=== PATIENT | male | born 1960 | race Hispanic/Latino ===

== ENCOUNTER 2019-01-01 12:31 | Emergency (ER) | payer BC, OTHER ==
[~2019-01-01] VITALS: Ht 165.1 cm; Wt 72.6 kg
[~2019-01-01 12:31] MED LIST: GLIMEPIRIDE2 MG PO; LEVEMIR100 UNIT/1 SC; LISINOPRIL10 MG PO; METFORMIN HCL500 MG PO; METFORMIN HCL850 MG PO
[2019-01-01] MEDS ORDERED: CLONIDINE HCL 0.1 MG TAB PO ONE (13:15)
[2019-01-01 14:09] LABS: BASOPHILS % 0.5 % (0.0-1.0); EOSINOPHILS # (AUTO) 0.2 (0.0-0.4); EOSINOPHILS % 2.7 % (0.0-6.0); HEMOGLOBIN 13.9 g/dL (14.0-18.0); LYMPHOCYTES # (AUTO) 1.6 (1.0-3.2); LYMPHOCYTES % 18.9 % (18.0-39.1); MEAN CORPUSCULAR HEMOGLOBIN 25.6 pg (28-32); MEAN CORPUSCULAR HGB CONC 33.1 g/dL (31-35); MEAN CORPUSCULAR VOLUME 77.2 fL (81-99); MONOCYTES # (AUTO) 0.6 (0.2-0.8); MONOCYTES % 7.1 % (4.4-11.3); NEUTROPHILS % 70.6 % (38.7-80.0); PLATELET COUNT 254 x10e3/uL (140-360); RED BLOOD COUNT 5.44 x10e6/uL (4.3-5.7); RED CELL DISTRIBUTION WIDTH 13.9 % (11.7-14.4)
[2019-01-01 14:18] LABS: BILIRUBIN,URINE NEGATIVE (NEGATIVE); CLARITY,URINE SL CLOUDY (CLEAR); COLOR,URINE YELLOW (YELLOW); KETONES,URINE NEGATIVE (NEGATIVE); LEUKOCYTE ESTERASE ,URINE NEGATIVE (NEGATIVE); NITRITE,URINE NEGATIVE (NEGATIVE); PROTEIN,URINE DIPSTICK 2+ (NEGATIVE); URINE UROBILINOGEN 0.2 mg/dL (0.2 - 1)
[2019-01-01 14:22] LABS: INR 0.88; PROTHROMBIN TIME 12.4 seconds (11.9-14.5)
[2019-01-01 14:23] LABS: PARTIAL THROMBOPLASTIN TIME 29.5 seconds (23.8-35.5)
[2019-01-01 14:29] LABS: BACTERIA,URINE MODERATE /HPF
[2019-01-01 14:30] LABS: AMORPHOUS SEDIMENT,URINE FEW (FEW)
[2019-01-01 14:30] LABS: ALBUMIN 3.8 g/dL (3.5-5.0); ALBUMIN/GLOBULIN RATIO 0.9 (0.8-2.0); ANION GAP 13.2 mmol/L (8-16); CALCIUM 10.2 mg/dL (8.4-10.2); CREATININE, SERUM 1.4 mg/dL (0.72-1.25); POTASSIUM 4.2 mmol/L (3.5-5.1)
[2019-01-01 14:37] LABS: CREATINE KINASE MB 0.8 ng/mL (0-5.0)
--- NOTE | 2019-01-01 14:56 | Diagnostic Imaging Report ---
EXAMINATION: Head CT HISTORY: Status post fall, loss of consciousness, forehead trauma, pain COMPARISON: None. TECHNIQUE: Multidetector axial images were obtained without contrast from the foramen magnum to the vertex . The images were reconstructed using brain and bone algorithms. Thin section brain images were reformatted into coronal and sagittal planes. Image quality: Motion/streaking artifact limits the evaluation of the skull base and posterior cranial fossa. Dose modulation, iterative reconstruction, and/or weight based adjustment of the mA/kV was utilized to reduce the radiation dose to as low as reasonably achievable. FINDINGS: Parenchyma: 1. No abnormal densities. 2. No mass or hemorrhage. No CT evidence of acute territorial vascular insult. Extra-axial spaces:No abnormal density. No extra-axial fluid collections Brain volume: Normal for age. Ventricles: No hydrocephalus or displacement. Arteries: No density suggestive of thrombus. Dural sinuses: No abnormal density. Extra-axial spaces: No abnormal density. Foramen magnum: No mass, Chiari malformation, or basilar invagination. Sella: No obvious mass. Paranasal/mastoid sinuses: Imaged portions unremarkable. Skull/Scalp: No lytic or blastic lesions. No fractures. IMPRESSION: No intracranial abnormalities, particularly no post traumatic hemorrhage. Signed by: Dr. Nydia Tobar M.D. on 01/01/2019 2:53 PM
--- NOTE | 2019-01-01 15:00 | Diagnostic Imaging Report ---
EXAMINATION: CHEST 2 VIEWS INDICATION: Status post fall. COMPARISON: CTA chest 09/14/2016. FINDINGS: TUBES and LINES: None. LUNGS: Lungs are well inflated. Pulmonary nodules noted on CT chest from 09/14/2016 are not well seen by radiograph. There is no evidence of pneumonia or pulmonary edema. PLEURA: No pleural effusion or pneumothorax. HEART AND MEDIASTINUM: The cardiomediastinal silhouette is unremarkable. BONES AND SOFT TISSUES: No acute osseous lesion. Soft tissues are unremarkable. UPPER ABDOMEN: No free air under the diaphragm. IMPRESSION: No acute radiographic abnormality. Pulmonary nodules noted on CT chest from 09/14/2016 are not well seen by radiograph. A follow-up chest CT (which can be performed in the non-emergent setting) is recommended to assess for stability. Signed by: Dr. Ronald Dee MD on 01/01/2019 2:57 PM
== END 2019-01-01 15:33 | disposition home or self-care (01) ==
LOC: ER 12:31
DX: R53.1 Weakness (principal); E11.9 Type 2 diabetes mellitus without complications; E78.00 Pure hypercholesterolemia, unspecified
CPT/HCPCS: 36415; 70450; 71046; 80053; 81001; 82550; 82553; 84484; 85025; 85610; 85730; 93005; 99284

== ENCOUNTER 2019-05-14 22:57 | Emergency (ER) | payer BC ==
[~2019-05-14] VITALS: Ht 165.1 cm; Wt 72.6 kg
--- OUTSIDE RECORDS SUMMARY | 2019-05-14 22:59 | XMS REPORT ---
[facility] Phone Unavailable Care Team Providers Care Sales Administration Manager Name Role Phone Radha SAAB Unavailable Unavailable Problems This patient has no known problems. Allergies, Adverse Reactions, Alerts This patient has no known allergies or adverse reactions. Medications This patient has no known medications. Results Test Description Test Time Test Comments Text Results Atomic Results Result Comments CHEST 2 VIEWS 2019-01-01 14:55:00 [facility] [address] [address] Patient Name: ALEX WELLER MR #: [id number] : 1960 Age/Sex: 58/M Req #: [id number] Adm Physician: Ordered by: JULIA SALGADO PBX W[employer] CHIEF Report #: [id number] Location: ER Room/Bed: Procedure: [id number] DX/CHEST 2 VIEWS Exam Date: 01/01/19 Exam Time: 1400 REPORT STATUS: Signed EXAMINATION: CHEST 2 VIEWS INDICATION: Status post f all. COMPARISON: CTA chest 09/14/2016. FINDINGS: TUBES and LINES: None. LUNGS: Lungs are well inflated. Pulmonary nodules noted on CT chest from 09/14/2016 are not well seen by radiograph. There is no evidence of pneumonia or pulmonary edema. PLEURA: No pleural effusion or pneumothorax. HEART AND MEDIASTINUM: The cardiomediastinal silhouette is unremarkable. BONES AND SOFT TISSUES: No acute osseous lesion. Soft tissues are unremarkable. UPPER ABDOMEN: No free air under the diaphragm. IMPRESSION: No acute radiographic abnormality. Pulmonary nodules noted on CT chest from 09/14/2016 are not well seen by radiograph. A follow-up chest CT (which can be performed in the non-emergent setting) is recommended to assess for stability. Signed by: Dr. Buffy Uriarte MD on 01/01/2019 2:57 PM Dictated By: BUFFY URIARTE MD [id number] Transcribed By: LAKESHIA on 01/01/19 698 COPY TO: JULIA SALGADO NP CT BRAIN WO 2019-01-01 14:52:[address] [address] Patient Name: ALEX WELLER MR #: [id number] : 1960 Age/Sex: 58/M Req #: [id number] Adm Physician: Ordered by: JULIA SALGADO NP Report #: [id number] Location: ER Room/Bed: Procedure: [id number] CT/CT BRAIN WO Exam Date: 01/01/19 Exam Time: 1400 REPORT STATUS: Signed EXAMINATION: Head CT HISTORY: Status post fall, loss of consciousness, forehead trauma, pain COMPARISON: None. TECHNIQUE: Multidetector axial images were obtained without contrast from the foramen magnum to the vertex . The images were reconstructed using brain and bone algorithms. Thin section brain images were reformatted into coronal and sagittal planes. Image quality: Motion/streaking artifact limits the evaluation of the skull base and posterior cranial fossa. Dose modulation, iterative reconstruction, and/or weight based adjustment of the mA/kV was utilized to reduce the radiation dose to as low as reasonably achievable. FINDINGS: Parenchyma: 1. No abnormal densities. 2. No mass or hemorrhage. No CT evidence of acute territorial vascular insult. Extra-axial spaces:No abnormal density. No extra-axial fluid collections Brain volume: Normal for age. Ventricles: No hydrocephalus or displacement. Arteries: No density suggestive of thrombus. Dural sinuses: No abnormal density. Extra-axial spaces: No abnormal density. Foramen magnum: No mass, Chiari malformation, or basilar invagination. Sella: No obvious mass. Paranasal/mastoid sinuses: Imaged portions unremarkable. Skull/Scalp: No lytic or blastic lesions. No fractures. IMPRESSION: No intracranial abnormalities, particularly no post traumatic hemorrhage. Signed by: Dr. Sharon Tobar M.D. on 01/01/2019 2:53 PM Dictated By: SHARON TOBAR MD 1453 Transcribed By: LAKESHIA on 01/01/19 1453 COPY TO: JULIA SALGADO PBX W[employer] CHIEF XR Foot Complete 3+ Views Left 2018-10-07 17:32:36 Patient: ALEX WELLER Date/Time10/07/2018 15:32 CSTReason for ExamE11.621ReportLEFT FOOT SERIES, 3 VIEWSLocation Code: [id number]: E11.621COMMENTS:An acute fracture is not identified in the foot. A moderate hallux valgus deformity is seen with associated marked soft tissue swelling. There is lateral subluxation of the first metatarsophalangeal joint. Associated subchondral sclerosis and cyst formation are also present. The hallux sesamoid bones are laterally subluxed. Small posterior and plantar calcaneal bone spurs are noted.IMPRESSION:Moderate hallux valgus.Marked soft tissue swelling at the first metatarsophalangeal joint. Final Dictated by: MD Evans Adam FDictated DT/TM: 10/07/2018 5:24 pmSigned by: MD Evans Adam FSigned (Electronic Signature): 10/07/2018 5:32 pm XR Foot Complete 3+ Views Left 2018-08-28 11:24:19 Patient: ALEX WELLER Date/Time08/28/2018 10:25 CDTReason for ExampainReportXR Foot Complete 3+ Views LeftCLINICAL INFORMATION: painCOMPARISONS: None available.FINDINGS:No acute fracture is identified. A moderate hallux valgus deformity of 30 degrees is seen. There is lateral subluxation of the hallux sesamoids. Soft tissue swelling surrounds the first metatarsophalangeal joint. Small posterior and plantar calcaneal bone spurs are present.IMPRESSION:1. Moderate hallux valgus with associated soft tissue swelling at the first metatarsophalangeal joint.2. No acute fracture or bony erosion is identified.Location: R16 Final Dictated by: MD Evans Adam FDictated DT/TM: 08/28/2018 11:21 amSigned by: MD Evans Adam FSigned (Electronic Signature): 08/28/2018 11:24 am
[2019-05-14 23:36] LABS: BASOPHILS % 0.1 % (0.0-1.0); EOSINOPHILS % 0.1 % (0.0-6.0); HEMATOCRIT 32.6 % (38.2-49.6); HEMOGLOBIN 10.9 g/dL (14.0-18.0); LYMPHOCYTES # (AUTO) 1.2 (1.0-3.2); LYMPHOCYTES % 8.5 % (18.0-39.1); MEAN CORPUSCULAR HEMOGLOBIN 26.3 pg (28-32); MEAN CORPUSCULAR HGB CONC 33.4 g/dL (31-35); MEAN CORPUSCULAR VOLUME 78.6 fL (81-99); MONOCYTES # (AUTO) 0.9 (0.2-0.8); MONOCYTES % 6.2 % (4.4-11.3); NEUTROPHILS % 84.5 % (38.7-80.0); PLATELET COUNT 237 x10e3/uL (140-360); RED BLOOD COUNT 4.15 x10e6/uL (4.3-5.7); RED CELL DISTRIBUTION WIDTH 13.1 % (11.7-14.4)
[2019-05-15 00:02] LABS: ALBUMIN/GLOBULIN RATIO 0.6 (0.8-2.0); ANION GAP 15.2 mmol/L (8-16); CALCIUM 9.2 mg/dL (8.4-10.2); CREATININE, SERUM 1.67 mg/dL (0.72-1.25); POTASSIUM 4.2 mmol/L (3.5-5.1)
[2019-05-15 00:28] LABS: AMYLASE 38 U/L (25-125); LIPASE 23 U/L (8-78)
[2019-05-15] MEDS ORDERED: SODIUM CHLORIDE 0.9% 50ML 50 ML ONE (01:26)
[2019-05-15] MEDS ORDERED: IOPAMIDOL 370 MG/ML 200 ML INFUS..BTL INJ ONE (01:26)
[2019-05-15] MEDS: ONDANSETRON HCL INJ 2MG/ML 2ML 2 MG/ML VIAL IV STA (01:50)
[2019-05-15] MEDS: SODIUM CHLORIDE 0.9% 1000ML 1,000 ML IV ONE (01:50)
[2019-05-15] MEDS: ACETAMINOPHEN 1000 MG/100 ML IV STA (01:50)
[2019-05-15 02:03] LABS: BILIRUBIN,URINE NEGATIVE (NEGATIVE); CLARITY,URINE CLEAR (CLEAR); COLOR,URINE YELLOW (YELLOW); KETONES,URINE TRACE (NEGATIVE); LEUKOCYTE ESTERASE ,URINE NEGATIVE (NEGATIVE); NITRITE,URINE NEGATIVE (NEGATIVE); PROTEIN,URINE DIPSTICK 2+ (NEGATIVE); URINE UROBILINOGEN 1 mg/dL (0.2 - 1)
[2019-05-15 02:17] LABS: AMORPHOUS SEDIMENT,URINE MODERATE (FEW); EPITHELIAL CELLS,URINE FEW /LPF; RBC,URINE 0-5 /HPF (0-5); WBC,URINE (MAN) 0-5 /HPF (0-5)
--- NOTE | 2019-05-15 04:42 | Diagnostic Imaging Report ---
EXAM: CT of the abdomen and pelvis WITH contrast HISTORY: Stomach pain, periumbilical pain, fever, nausea, vomiting COMPARISON: None available. TECHNIQUE: The abdomen and pelvis were scanned utilizing a multidetector helical scanner. Coronal and sagittal reformats are provided. PROTOCOL: Routine IV CONTRAST: 100 cc of Isovue-370. ORAL CONTRAST: None, which limits sensitivity and specificity of the exam. RADIATION DOSE: Total DLP: 512.73 mGy*cm Estimated effective dose: (DLP x 0.015 x size factor) Dose modulation, iterative reconstruction, and/or weight based adjustment of the mA/kV was utilized to reduce the radiation dose to as low as reasonably achievable. COMPLICATIONS: None FINDINGS: LOWER THORAX: Bibasilar atelectasis. A 5 mm nodule at the anterior aspect of the right lung base, the prior CT is not available for comparison, but multiple pulmonary nodules were noted and follow-up previously recommended for surveillance. HEPATOBILIARY: No mass. No biliary dilation. No calcified gallstone. SPLEEN: No splenomegaly. PANCREAS: No focal masses or ductal dilatation. ADRENALS: No discrete adrenal nodule. KIDNEYS/URETERS: No hydronephrosis, stones, or definite solid mass lesions. PELVIC ORGANS/BLADDER: The urinary bladder is partially decompressed, but the wall appears significantly thickened even allowing for the amount of decompression. GI TRACT: The stomach is decompressed, which limits evaluation. No bowel dilation. The appendix is normal. PERITONEUM / RETROPERITONEUM: No free air or fluid. LYMPH NODES: No pathologically enlarged lymph node. VESSELS: Mild scattered atherosclerotic vascular calcifications. BONES and JOINTS: No aggressive osseous lesion or acute fracture. SOFT TISSUES: A very small fat-containing umbilical hernia, without adjacent significant fat stranding. IMPRESSION: 1. Very small fat-containing umbilical hernia, without associated significant fast changes suggest vascular compromise. Correlate with physical exam. 2. Probable nonspecific mild diffuse thickening of the urinary bladder wall, correlate for cystitis. 3. Recommend correlation CT of the chest without contrast for surveillance of the previously described multiple pulmonary nodules (report from CT of the chest September 14, 2016), this may be performed on a nonemergent basis if this surveillance follow-up has not occurred. Signed by: Dr. Joel Carty D.O., M.M.M. on 05/15/2019 4:39 AM
[2019-05-15 05:16] VITALS: BP 103/70
== END 2019-05-15 05:33 | disposition home or self-care (01) ==
LOC: ER 22:57
DX: R10.33 Periumbilical pain (principal); R11.2 Nausea with vomiting, unspecified; B34.9 Viral infection, unspecified; I10 Essential (primary) hypertension; E11.9 Type 2 diabetes mellitus without complications; E78.5 Hyperlipidemia, unspecified; Z79.4 Long term (current) use of insulin
CPT/HCPCS: 36415; 74177; 80053; 81001; 82150; 83605; 83690; 85025; 99284; J0131; J2405; J7030; Q9967